=== PATIENT | male | born 1965 | race Two or more races ===

== ENCOUNTER 2021-06-05 19:41 | Emergency (ER) | payer OTHER ==
[~2021-06-05] VITALS: Ht 172.7 cm; Wt 68.0 kg
[2021-06-06] MEDS ORDERED: PERCOCET 5-3251 EACH PO (00:01)
== END 2021-06-05 23:56 | disposition home or self-care (01) ==
LOC: ER 19:41
DX: S42.392A Other fracture of shaft of left humerus, initial encounter for closed fracture (principal); W01.198A Fall on same level from slipping, tripping and stumbling with subsequent striking against other object, initial encounter; Y93.89 Activity, other specified; Y92.018 Other place in single-family (private) house as the place of occurrence of the external cause; Y99.8 Other external cause status